=== PATIENT | male | born 1995 | race Caucasian/White ===

== ENCOUNTER 2020-11-16 22:10 | Emergency (ER) | payer BC, MEDICAID ==
[~2020-11-16] VITALS: Ht 195.6 cm; Wt 116.0 kg
[2020-11-16 22:15] VITALS: BP 180/119
[2020-11-16] MEDS ORDERED: AMOX1TAB61 PO (23:42)
--- NOTE | 2020-11-16 23:44 | PHYS DOC ---
Past Medical History Past Medical History: No Pertinent History Past Surgical History: Other Additional Past Surgical Histo: ELBOW, CLUB FOOT Smoking Status: Never Smoker Alcohol Use: None General Adult EDM: Chief Complaint: ANIMAL BITE HPI: HPI: Patient is a 25 year old [f__sex] who presents with [] Review of Systems: Review of Systems: Constitutional: Denies fever or chills. [] Eyes: Denies change in visual acuity. [] HENT: Denies nasal congestion or sore throat. [] Respiratory: Denies cough or shortness of breath. [] Cardiovascular: Denies chest pain or edema. [] GI: Denies abdominal pain, nausea, vomiting, bloody stools or diarrhea. [] : Denies dysuria. [] Musculoskeletal: Denies back pain or joint pain. [] Integument: Denies rash. [] Neurologic: Denies headache, focal weakness or sensory changes. [] Endocrine: Denies polyuria or polydipsia. [] Lymphatic: Denies swollen glands. [] Psychiatric: Denies depression or anxiety. [] Heart Score: Risk Factors: Risk Factors: DM, Current or recent (<one month) smoker, HTN, HLP, family history of CAD, obesity. Risk Scores: Score 0 - 3: 2.5% MACE over next 6 weeks - Discharge Home Score 4 - 6: 20.3% MACE over next 6 weeks - Admit for Clinical Observation Score 7 - 10: 72.7% MACE over next 6 weeks - Early Invasive Strategies Physical Exam: PE: Constitutional: Well developed, well nourished, no acute distress, non-toxic appearance. [] HENT: Normocephalic, atraumatic, bilateral external ears normal, oropharynx moist, no oral exudates, nose normal. [] Eyes: PERRLA, EOMI, conjunctiva normal, no discharge. [] Neck: Normal range of motion, no tenderness, supple, no stridor. [] Cardiovascular:Heart rate regular rhythm, no murmur [] Lungs & Thorax: Bilateral breath sounds clear to auscultation [] Abdomen: Bowel sounds normal, soft, no tenderness, no masses, no pulsatile masses. [] Skin: Warm, dry, no erythema, no rash. [] Back: No tenderness, no CVA tenderness. [] Extremities: No tenderness, no cyanosis, no clubbing, ROM intact, no edema. [] Neurologic: Alert and oriented X 3, normal motor function, normal sensory function, no focal deficits noted. [] Psychologic: Affect normal, judgement normal, mood normal. [] Current Patient Data: Vital Signs: Vital Signs Date Time Temp Pulse Resp B/P (MAP) Pulse Ox O2 Delivery O2 Flow Rate FiO2 11/16/20 22:15 98.2 97 16 180/119 (139) 97 Room Air 98.2 EKG: EKG: [] Radiology/Procedures: Radiology/Procedures: PROCEDURE: HAND RIGHT 3V XR HAND_RIGHT 3 VIEWS History: Reason: pain, swelling, dog bite / Spl. Instructions: / History: Technique: 3 views right hand Comparison: None. Findings: Normal alignment. No acute fracture. Chronic fourth metacarpal fracture. No radiopaque foreign body. Dorsal hand soft tissue swelling. Ulnar minus variance. Impression: 1. No acute osseous abnormality. 2. Dorsal hand soft tissue swelling. Electronically signed by: Hubert Mathews DO (11/17/2020 12:17 AM) [facility] Course & Med Decision Making: Course & Med Decision Making Pertinent Labs and Imaging studies reviewed. (See chart for details) [] Dragon Disclaimer: [employer] Disclaimer: This electronic medical record was generated, in whole or in part, using a voice recognition dictation system. Departure Departure Impression: Primary Impression: Dog bite of hand Qualified Codes: S61.451A - Open bite of right hand, initial encounter; W54.0XXA - Bitten by dog, initial encounter Disposition: 01 DC HOME SELF CARE/HOMELESS Condition: STABLE Patient Instructions: Animal Bite, [id number], Elastic Bandage and RICE Additional Instructions: Do not soak your wound. You may shower. Clean wound daily with soap and water. Change dressing 2 times daily. Use over the counter antibiotic ointment with each dressing change. Use over the counter Tylenol and/or Ibuprofen for pain or discomfort. Scripts Amoxicillin/Potassium Clav (AUGMENTIN 875-125 TABLET) 1 Each Tablet 1 TAB PO BID for 7 Days, #14 TAB Prov: KODY LISA DO 11/16/20 KODY LISA DO Nov 16, 2020 23:44
[2020-11-17] MEDS: AMOXICILLIN/K CLAV 875/125MG TABLET. PO ONE (00:16)
[2020-11-17] MEDS: IBUPROFEN 200 MG TABLET. PO ONE (00:16)
[2020-11-17] MEDS: DIPH,PERTUSS(ACELL),TET VAC/PF 0.5 ML SYRINGE. VAX IM ONE (00:18)
--- NOTE | 2020-11-17 00:20 | RAD ---
XR HAND_RIGHT 3 VIEWS History: Reason: pain, swelling, dog bite / Spl. Instructions: / History: Technique: 3 views right hand Comparison: None. Findings: Normal alignment. No acute fracture. Chronic fourth metacarpal fracture. No radiopaque foreign body. Dorsal hand soft tissue swelling. Ulnar minus variance. Impression: 1. No acute osseous abnormality. 2. Dorsal hand soft tissue swelling. Electronically signed by: Hubert Mathews DO (11/17/2020 12:17 AM) [facility]
[2020-11-17] MEDS: NEOMY/BACITR/POLYMYXIN OINT PACKET. TP ONE (00:24)
== END 2020-11-17 00:50 | disposition home or self-care (01) ==
LOC: ER 22:10
DX: S61.451A Open bite of right hand, initial encounter (principal); Z98.890 Other specified postprocedural states; W54.0XXA Bitten by dog, initial encounter; Y93.89 Activity, other specified; Y92.89 Other specified places as the place of occurrence of the external cause; Y99.8 Other external cause status
CPT/HCPCS: 73130; 90471; 90715; 99284